=== PATIENT | male | born 1945 | race Asian ===

== ENCOUNTER 2019-12-22 06:44 | Day surgery (SDC) | payer MEDICARE, OTHER ==
[~2019-12-22] VITALS: Ht 154.9 cm; Wt 71.8 kg
[~2019-12-22 06:44] MED LIST: ASPI81TA39 PO; DICL25 PO; GLIP5 PO; METF-960 PO; MONT10TA21 PO; SIMV-261 PO; SODIUM CHLORIDE 0.9% 1,000 ML IV ONE; SODIUM CHLORIDE 0.9% 1,000 ML ONE
[2019-12-22 07:51] LABS: GLUCOMETER DEV NAME(LOC) SDS.; GLUCOSE,POINT OF CARE 107 MG/DL (70-110)
[2019-12-22] MEDS ORDERED: MIDAZOLAM HCL 2 MG/2 ML VIAL ONE (07:51)
[2019-12-22] MEDS ORDERED: FentaNYL CITRATE-PF 100 MCG/2 ML VIAL ONE (07:52)
[2019-12-22] MEDS ORDERED: MethylPREDNISolone SOD SUCC 125 MG/2 ML VIAL IVP ONE (08:30)
[2019-12-22] MEDS ORDERED: MethylPREDNISolone SOD SUCC 125 MG/2 ML VIAL ONE (08:50)
[2019-12-22] MEDS ORDERED: OXYGEN THERAPY IH SCH (20:00)
[2019-12-22] MEDS ORDERED: ALBUTEROL SULFATE 2.5 MG/0.5 ML NEB SOLUTION NEB ONE ×2 (21:33→21:34)
[2019-12-22] MEDS ORDERED: LIDOCAINE 4% 50 ML SOLUTION ONE ×2 (21:33→21:34)
[2019-12-22] MEDS ORDERED: BENZOCAINE 20% 50 MCG/SPRAY 57 GM ONE ×2 (21:33→21:34)
[2019-12-22] MEDS ORDERED: LIDOCAINE 2% 5 ML JELLY ONE ×2 (21:33→21:34)
[2019-12-22] MEDS ORDERED: LIDOCAINE 2% 30 ML JELLY ONE (21:34)
== END 2019-12-22 10:10 | disposition home or self-care (01) ==
LOC: SURGERY 06:44
PROVIDERS: ATTEND Internal Medicine Critical Care Medicine
DX: J38.4 Edema of larynx (principal); B37.0 Candidal stomatitis; I10 Essential (primary) hypertension; M19.90 Unspecified osteoarthritis, unspecified site; E78.00 Pure hypercholesterolemia, unspecified; Z98.890 Other specified postprocedural states; Z87.891 Personal history of nicotine dependence; Z79.899 Other long term (current) drug therapy
CPT/HCPCS: 31623; 31624; 71045; 82962; 87015; 87070; 87077; 87101; 87186; 87205; 87206; 87220; 88108; 88312; J2250; J2930; J3010; J7030; J7613; Z7610